=== PATIENT | female | born 1940 | race Caucasian/White ===

== ENCOUNTER 2021-04-13 10:14 | Emergency (ER) | payer MEDICARE, SELFPAY ==
[2021-04-13 10:37] VITALS: BP 177/91; PULSE 76; RESP 18; TEMP 36.6; O2SAT 95; BMI 36.6
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
[2021-04-13] MEDS: ondansetron 2 mg/ML SDV 2 mL 4 MG IM (12:06)
[2021-04-13] MEDS: morphine 4 mg/mL SDV 1 mL IM (12:07)
[2021-04-13 15:08] VITALS: RESP 16; O2SAT 100
== END 2021-04-13 15:10 | disposition home or self-care (01) ==
PROVIDERS: Emergency Provider Physician Assistant
DX: S06.321A Contusion and laceration of left cerebrum with loss of consciousness of 30 minutes or less, initial encounter (principal); V89.2XXA Person injured in unspecified motor-vehicle accident, traffic, initial encounter
CPT/HCPCS: 70450; 72125; 73030; 96372; 99283; J2270; J2405